=== PATIENT | female | born 1980 | race Caucasian/White ===

== ENCOUNTER 2018-08-26 12:00 | Emergency (ER) | payer OTHER ==
[~2018-08-26] VITALS: Ht 160 cm; Wt 68.0 kg
[2018-08-26 12:30] LABS: *BILIRUBIN,URIN NEGATIVE (NEGATIVE); *BLOOD, URINE NEGATIVE (NEGATIVE); *CLARITY,URINE CLEAR (CLEAR); *COLOR,URINE YELLOW (YELLOW); *KETONES,URINE NEGATIVE (NEGATIVE); *PROTEIN,URINE NEGATIVE (NEGATIVE); *UROBILINOGEN,URINE 0.2 E.U./dl (NORMAL); LEUKOCYTE ESTERASE ,URINE NEGATIVE (NEGATIVE); NITRITE, URINE NEGATIVE (NEGATIVE); UGLUCOSE NEGATIVE (NEGATIVE)
[2018-08-26 12:43] LABS: *URINE HCG, QUAL NEGATIVE (NEGATIVE)
[2018-08-26 12:46] LABS: BACTERIA,URINE FEW /HPF (NONE SEEN); RBC,URINE 0-3 /HPF (0-3); SQUAMOUS EPITHELIAL CELL,UR MODERATE /HPF (NONE SEEN); WBC,URINE 0-3 /HPF (0-3)
--- NOTE | 2018-08-26 13:12 | NUR ---
Pt resting in bed awaiting to be seen by Dr Jerome. Family at the bedside.
[2018-08-26 14:23] VITALS: BP 105/69
--- NOTE | 2018-08-26 14:24 | NUR ---
Patient discharged to home in stable conditon. Written and verbal after care instructions given. Patient verbalizes understanding of instructions.
== END 2018-08-26 14:24 | disposition home or self-care (01) ==
LOC: ER 12:03
DX: R10.9 Unspecified abdominal pain (principal); R93.89 Abnormal findings on diagnostic imaging of other specified body structures; E03.9 Hypothyroidism, unspecified
CPT/HCPCS: 84703; A4663

== ENCOUNTER 2022-09-01 12:46 | Emergency (ER) | payer MEDICAID, OTHER ==
[~2022-09-01] VITALS: Ht 154.9 cm; Wt 79.4 kg
[2022-09-01] MEDS ORDERED: HYDROCODONE/APAP 5-325MG TABLET PO ONE (13:15)
[2022-09-01] MEDS ORDERED: HYDROCODONE/APAP 5-325MG TABLET ONE (13:19)
[2022-09-01 14:11] LABS: *URINE HCG, QUAL NEG (NEGATIVE)
[2022-09-01 14:12] LABS: *BILIRUBIN,URIN NEGATIVE (NEGATIVE); *BLOOD, URINE NEGATIVE (NEGATIVE); *CLARITY,URINE CLEAR (CLEAR); *COLOR,URINE YELLOW (YELLOW); *KETONES,URINE NEGATIVE (NEGATIVE); *UROBILINOGEN,URINE 0.2 E.U./dl (NORMAL); LEUKOCYTE ESTERASE ,URINE 1+ (NEGATIVE); NITRITE, URINE NEGATIVE (NEGATIVE); UGLUCOSE NEGATIVE (NEGATIVE)
[2022-09-01] MEDS ORDERED: CYCL10TA9 PO (14:21)
[2022-09-01] MEDS ORDERED: NAPR500T6 PO (14:21)
--- NOTE | 2022-09-01 14:40 | NUR ---
Gave pt RX and d/c instructions, pt verbalized understanding.
[2022-09-01 20:00] LABS: BACTERIA,URINE NONE SEEN /HPF (NONE SEEN); RBC,URINE 0-3 /HPF (0-3); SQUAMOUS EPITHELIAL CELL,UR FEW /HPF (NONE SEEN)
== END 2022-09-01 14:46 | disposition home or self-care (01) ==
LOC: ER 12:46
DX: M54.50 Low back pain, unspecified (principal); E03.9 Hypothyroidism, unspecified
CPT/HCPCS: 72072; 72100; 84703; A4663